=== PATIENT | female | born 1990 | race Caucasian/White ===

== ENCOUNTER 2019-05-10 16:25 | Emergency (ER) | payer SELFPAY ==
[~2019-05-10] VITALS: Ht 170.2 cm; Wt 65.3 kg
[~2019-05-10 16:25] MED LIST: CEPH-443 PO; ONDA8TAB14 PO; TRAM50TA2 PO
[2019-05-10 16:29] VITALS: Ht 170.2 cm; Wt 65.3 kg
[2019-05-10] MEDS ORDERED: HYDROmorphONE 2 MG/ML SYG IV STA (17:12)
[2019-05-10] MEDS ORDERED: ONDANSETRON 4 MG INJ IV STA (17:12)
[2019-05-10] MEDS ORDERED: SOD CHLORIDE 0.9% 1,000 ML IV STA (17:12)
[2019-05-10 22:09] VITALS: BP 111/57; PULSE 72; RESP 18
== END 2019-05-10 22:10 | disposition home or self-care (01) ==
LOC: FTE 16:25
DX: K52.9 Noninfective gastroenteritis and colitis, unspecified (principal); R11.2 Nausea with vomiting, unspecified
CPT/HCPCS: 36415; 71045; 74177; 76705; 80053; 81001; 81025; 83690; 84484; 85025; 85610; 85730; 87086; 93005; 96374; 96375; 99285; J1170; J2405; J7030